=== PATIENT | female | born 1970 | race Caucasian/White ===

== ENCOUNTER 2018-06-10 20:27 | Emergency (ER) | payer OTHER ==
[2018-06-10 20:36] VITALS: BP 127/69
--- NOTE | 2018-06-10 20:37 | EDPHY ---
H & P Time Seen by Provider: 06/10/18 20:36 HPI/ROS: Chief complaint. Laceration HPI. Patient is a 48-year-old female with laceration to the right calf. Sustained prior to arrival when she was out in her yd watering plants. There is a stump in the yd and she tripped over it and sustained laceration to the right calf. She has been ambulatory. She is concerned that there could be a splinter in the wound. Denies any other injuries. She did not hit her head and does not have neck pain. ROS Constitutional. no fever/chills, no weakness Eyes. no problems with vision ENT. no sore throat, no nasal drainage Cardiovascular. no chest pain Respiratory. no shortness of breath, no cough Abdominal. no abdominal pain, no nausea/vomiting, no diarrhea . no problems urinating MS. no calf pain/swelling, no neck/back pain, no joint pain Skin. Laceration right calf Lymph. no swollen glands Neuro. no headache, no dizziness, no difficulty walking or with speech Past Medical/Surgical History: Healthy Social History: Single, nonsmoker, no alcohol Smoking Status: Never smoked Physical Exam: General Appearance: Alert pleasant well-developed female mild distress vital signs are stable Eyes: Pupils equal and round no pallor or injection. ENT, Mouth: Mucous membranes are moist. Respiratory: There are no retractions, lungs are clear to auscultation. Cardiovascular: Regular rate and rhythm. Gastrointestinal: Abdomen is soft and nontender, no masses, bowel sounds normal. Neurological: Awake and alert, sensory and motor exams grossly normal. Skin: 2.5 cm v-shaped laceration to the right calf. Distal motor vascular sensitivity intact Musculoskeletal: Neck is supple nontender. Extremities symmetrical, full range of motion. Psychiatric: Patient is oriented X 3, there is no agitation. Constitutional: Initial Vital Signs Temperature (C) 37.4 C 06/10/18 20:33 Heart Rate 70 06/10/18 20:33 Respiratory Rate 18 06/10/18 20:33 Blood Pressure 127/69 H 06/10/18 20:33 O2 Sat (%) 97 06/10/18 20:33 O2 Delivery Mode Room Air Allergies/Adverse Reactions: hydrocodone Allergy (Verified 06/10/18 20:33) Home Medications: Medication Instructions Recorded ALPRAZolam [Xanax 0.25 MG (*)] 06/10/18 Citalopram [CeleXA 20 MG] 06/10/18 Medical Decision Making Procedures: Procedure: Laceration repair. Verbal consent was obtained from the patient. The 2.5 cm laceration on the right calf was anesthetized in the usual fashion. The wound was irrigated, draped and explored to its base with a gloved finger. There were no deep structures involved. There was no evidence for foreign body either by inspection or palpation. No tendon injury was identified. The wound was repaired with ten 5-0 prolene sutures. The wound repair was simple. The procedure was performed by myself. ED Course/Re-evaluation: Patient remained stable. She and I discussed treatment plan including criteria for return and importance of follow-up and further evaluation. She expresses understanding and agreement Differential Diagnosis: I considered retained foreign body, infection potential of wound Departure - Departure Disposition: Home, Routine, Self-Care Clinical Impression: Leg laceration Qualifiers: Encounter type: initial encounter Laterality: right Qualified Code(s): S81.811A - Laceration without foreign body, right lower leg, initial encounter Condition: Good Instructions: Care For Your Stitches (ED) Additional Instructions: Keep cut clean and dry. You may shower with stitches in. However avoid immersion. Return for signs of infection. Stitches out 10 days Referrals: Aisha Pappas MD [Primary Care Provider] - As per Instructions
== END 2018-06-10 21:27 | disposition home or self-care (01) ==
LOC: CED 20:27
PROC: 0HQKXZZ Repair Right Lower Leg Skin, External Approach (ICD-10-PCS; principal; 2018-06-10)
DX: S81.811A Laceration without foreign body, right lower leg, initial encounter (principal); W18.49XA Other slipping, tripping and stumbling without falling, initial encounter; Y92.017 Garden or yard in single-family (private) house as the place of occurrence of the external cause; Y93.H2 Activity, gardening and landscaping